=== PATIENT | male | born 1980 | race Caucasian/White ===

== ENCOUNTER 2016-05-14 21:16 | Observation (INO) | payer OTHER ==
[~2016-05-14] VITALS: Ht 188 cm; Wt 90.3 kg
--- NOTE | ~2016-05-14 | HP ---
PATIENT'S NAME: KARINE LION [facility] AGE: 35 Y [address] ROOM: [place] [address] LOCATION: GPED ADMIT DATE: 05/15/2016 History & Physical DISCHARGE DATE: 05/15/2016 FAMILY PHYSICIAN: Naveen Gallagher MD ATTENDING PHYSICIAN: Naveen Gallagher DATE OF SERVICE: CHIEF COMPLAINT: Left knee injury. HISTORY: This 35-year-old male was admitted to [facility] last night for injury sustained to his left knee when a mother cow attacked him while he was helping with her calf. Cow weighed 1400 pounds and stumped on his left knee and thigh with her hooves and then stood over him, laid down on him, then got up. He had pain in his knee, but he is able to get up and hobble to his four- johnson and escaped. He had no loss of consciousness, but he had a mild concussion and a laceration above his eyebrow and some bruises. He complains of pain and swelling in his left mid thigh. Pain over the lateral aspect of his left knee. He denies numbness or tingling or loss of any motor function in his lower extremities. No bowel or bladder dysfunction. No neck or back pain. He drove the four-johnson last night to his parents, who called an ambulance, which brought him to [facility] Emergency Room. He was evaluated by Dr. Lux Tucker. CT scans were done of his cervical, thoracic, and lumbar spine, and pelvis and chest. There were no fractures or pneumothoraces. No pleural effusions or pulmonary contusions. No pathology in the abdomen. He was admitted to the hospital for observation. ALLERGIES: NONE. MEDICATIONS: 1. Tegretol XR 400 mg at bedtime. 2. 370. 3. Sublimaze for pain. SURGICAL HISTORY: Negative. MEDICAL HISTORY: Seizure disorder, otherwise negative. SOCIAL HISTORY: PATIENT'S NAME: KARINE LION [facility] AGE: 35 Y [address] ROOM: [place] [address] LOCATION: GPED ADMIT DATE: 05/15/2016 History & Physical DISCHARGE DATE: 05/15/2016 FAMILY PHYSICIAN: Naveen Gallagher MD ATTENDING PHYSICIAN: Naveen Gallagher Nonsmoker. No alcohol use. FAMILY HISTORY: Positive for heart trouble. REVIEW OF SYSTEMS: No chest pain, shortness of breath, or trouble breathing. No nausea, vomiting. No dysuria or hematuria. No chest pain. No malaise. No fevers or chills. No weight changes. No psych troubles. No auditory or visual hallucinations. PHYSICAL EXAMINATION: GENERAL: He is awake, alert, and oriented x3. Mood and affect appropriate. VITAL SIGNS: Blood pressure 125/75, pulse 79, respirations 16, temp 96.8. HEENT: He has a sutured laceration over his right eyebrow, which is clean. Vision is good. Extraocular movements intact. NEUROLOGIC: Cranial nerves 2 through 12 intact. NECK: Supple, nontender. SPINE: Nontender. HEART: Regular rhythm. CHEST: Clear to auscultation. ABDOMEN: Soft, nontender. Normoactive bowel sounds. PELVIS: No pain with compression. EXTREMITIES: Left knee has a trace of swelling and lateral tenderness. There is no effusion or warmth. Range is 0 to 150 degrees. Drawer and Eliza's negative. No collateral laxity. Ambulates with a mild limp. The thigh has some swelling and tenderness laterally and anteriorly. No bruising. Skin is intact. Hip moves well without pain. RADIOLOGY DATA: X-rays of his left knee are negative for fractures. CT of his pelvis and hips is negative. CT of chest is negative. CT of cervical, thoracic, and lumbar spine is negative. IMPRESSION: 1. Contusion, strain, left knee. No fracture. No effusion. 2. Right eyebrow laceration. 3. First-degree concussion. 4. Facial contusion. PLAN: Physical therapy. Ice to knee p.r.n. pain. Crutches. Weight bear as tolerated. Discharged home. Follow up in 1 week. Work as tolerated. No need for a knee immobilizer. Discussed treatment plan with the patient and his . They understand and desire to proceed as planned. PATIENT'S NAME: KARINE LION [facility] AGE: 35 Y [address] ROOM: [place] [address] LOCATION: GPED ADMIT DATE: 05/15/2016 History & Physical DISCHARGE DATE: 05/15/2016 FAMILY PHYSICIAN: Naveen Gallagher MD ATTENDING PHYSICIAN: Naveen Gallagher GALLITO E MD ROHIT STOLL/olgal /[id number] D: [id number] T: [id number] HISTORY & PHYSICAL
--- NOTE | ~2016-05-14 | HP ---
PATIENT'S NAME: KARINE LION [facility] AGE: 35 Y [address] ROOM: [place] [address] LOCATION: GPED ADMIT DATE: 05/15/2016 History & Physical DISCHARGE DATE: 05/15/2016 FAMILY PHYSICIAN: Naveen Gallagher MD ATTENDING PHYSICIAN: Naveen Gallagher DATE OF SERVICE: CHIEF COMPLAINT: Trauma. 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 He states he was taking to the ground and also pushed up against the alleyway and stepped on. The patient presented to the emergency department, was noted to have a laceration above his eye, and had a CT of his head, C-spine, thoracic spine, and lumbar spine along with chest and abdomen performed, which were unremarkable except for degenerative changes in the lumbar spine. The patient was still having difficulty with pain control and needed to be admitted for pain control. PAST MEDICAL HISTORY: Seizure disorder. PAST SURGICAL HISTORY: 1. Tonsillectomy. 2. Knee surgery. ALLERGIES: NO KNOWN MEDICAL ALLERGIES. CURRENT MEDICATIONS: Please see list. FAMILY HISTORY: Noncontributory. SOCIAL HISTORY: The patient denies any tobacco use. REVIEW OF SYSTEMS: A complete review of systems obtained and pertinent positives and negatives as mentioned in the HPI, which also includes the patient denies any chest pain, shortness of breath, abdominal pain, nausea, vomiting, or any loss of PATIENT'S NAME: KARINE LION [facility] AGE: 35 Y [address] ROOM: [place] [address] LOCATION: GPED ADMIT DATE: 05/15/2016 History & Physical DISCHARGE DATE: 05/15/2016 FAMILY PHYSICIAN: Naveen Gallagher MD ATTENDING PHYSICIAN: Naveen Gallagher consciousness. OBJECTIVE: VITAL SIGNS: Stable. GENERAL: The patient is alert and oriented, in mild distress due to his pain. HEENT: Head: Normocephalic with laceration noted above eye, that is sutured and abrasions on his face and forehead. No crepitus to palpation of the facial bones. Eyes: Conjunctivae clear. No scleral icterus. EOMI. PERRLA. NECK: No pain to palpation of the C-spine. HEART: Regular rate and rhythm. No rubs, murmurs, or gallops. LUNGS: Clear to auscultation bilaterally. ABDOMEN: Bowel sounds present. Nontender. EXTREMITIES: No cyanosis, clubbing, or edema. VASCULAR: Pulses +2 and equal bilaterally. SKIN: Abrasions and laceration 2 cm noted above right eye with suture along with some bruises. NEUROLOGIC: Cranial nerves 2 through 12 grossly intact. Sensation intact in extremities. MUSCULOSKELETAL: Pain with motion of left knee with flexion or extension. No effusion noted. LABORATORY AND RADIOLOGY DATA: CT of the head, C-spine, thoracic spine, lumbar spine, chest, and abdomen were negative. ASSESSMENT: 1. Pain due to trauma. 2. Laceration 2 cm above the right eye. 3. Left knee pain. PLAN: At this time, we will work to get the patient's pain under control with IV morphine. We will monitor his O2 saturation and have Orthopedics evaluate his left knee that was stepped on by the cow. We will do Zofran for nausea and address any issues or concerns and continue on his medication for his seizure disorder. MD SUDHAKAR DE LEON/nadira /[id number] D: [id number] T: [id number] HISTORY & PHYSICAL
--- NOTE | ~2016-05-14 | ER ---
PATIENT'S NAME: KARINE LION [facility] AGE: 35 Y [address] ROOM: [place] [address] LOCATION: GPED ADMIT DATE: 05/15/2016 ER/Outpatient Report DISCHARGE DATE: FAMILY PHYSICIAN: Naveen Gallagher MD ATTENDING PHYSICIAN: Naveen Gallagher Admission date and time are documented on the medical record. I saw the patient at 2130 hours. HISTORY OF PRESENT ILLNESS: The patient was taken by 2 cows, direct blow, and kind of a crush injury. Did not lose consciousness. Brought to the emergency room by paramedics via ambulance for evaluation. The patient has left knee pain, chest pain, abdominal pain, and head and neck pain. He has about a 2-cm laceration in the right eyebrow. He has no recent colds, coughs, flus, fever, chills, or sweats. No real shortness of breath. He is breathing okay. No nausea or vomiting. No incontinence of stool or urine. Other than the left knee, no other joint or muscle swelling, redness, or pain. He has some bruising, but no major laceration of his extremities, trunk, back, or abdomen. History of seizure disorder; otherwise, no neuro changes, no psych issues, and no endocrine problems. HOME MEDICATIONS: See attached medication list. ALLERGIES: NONE. SOCIAL HISTORY: Nonsmoker, nondrinker. SIGNIFICANT PAST MEDICAL HISTORY: Seizure disorder. OPERATIONS: None. REVIEW OF SYSTEMS: All systems reviewed by me are negative with the exception of those discussed in the history of present illness. PHYSICAL EXAMINATION: VITAL SIGNS: Temperature 98.6, tympanic, pulse 120, regular, respirations 16, blood pressure is 133/72, and O2 sat on room air is 93%. HEAD: Normocephalic. The patient has some bruising of his face. He has a 2- PATIENT'S NAME: KARINE LION [facility] AGE: 35 Y [address] ROOM: [place] [address] LOCATION: GPED ADMIT DATE: 05/15/2016 ER/Outpatient Report DISCHARGE DATE: FAMILY PHYSICIAN: Naveen Gallagher MD ATTENDING PHYSICIAN: Goldfish,Naveen L cm horizontal laceration of his right eyebrow. This was cleansed with normal saline. A 1% Xylocaine was used for local infiltration of anesthesia. Wound was closed in simple fashion with 5-0 Ethilon suture. The patient tolerated the procedure well. Wound was cleansed and dressed. EYES: Extraocular muscles intact. PERRL. EARS: Clear TMs bilaterally. NOSE: Clear. He had some epistaxis, but nothing current. No deformity. THROAT: Clear. Teeth, jaw intact. NECK: The patient is in rigid cervical collar. SPINE: Negative. BACK: Intact. CHEST: Some mild tenderness across his anterior chest to palpation. No deformity. LUNGS: Clear. Good airflow. No rales, rhonchi, or wheezes. HEART: Regular. Pulses are palpable. ABDOMEN: Soft, nondistended, nontender. Good bowel tones. No organomegaly or abnormal mass palpable. No CVA tenderness. PELVIS: Stable, nontender. EXTREMITIES: The patient has some tenderness in his left knee. No swelling. No open wounds. No lacerations. NEURO: Cranial nerves intact. No lateralizing sign. The patient is awake, alert, and cooperative. Motor and sensory intact. SKIN: Clear. No skin eruptions or rash other than some bruising of the face and laceration of the right eyebrow. LABORATORY DATA: CMS was normal except for a low CO2 content of 16, elevated anion gap of 23.1, low calcium of 8.2, elevated creatinine 1.5, and low GFR of 53. White count 6600, 61 segs, 33 lymphs, 4 monos, 1 eo, 1 baso, hemoglobin is 14.9 with hematocrit 44.5, and platelet count is 224,000. Lactate was 11. CT scan of the head showed no intracranial bleed, midline shift, mass effect, or skull fracture. CT scan of the cervical spine showed no acute fracture or subluxation. CT scan of the thoracic spine showed no acute fracture or subluxation. CT scan of the lumbosacral spine showed degenerative changes, no acute fracture or subluxation. CT scan of the chest showed no pneumothorax, rib fracture, mediastinal changes. No pleural effusion, pulmonary contusion, or pericardial effusion. CT scan of the abdomen and pelvis showed no free air or free fluid. No solid organ abnormalities. There was a question of the right testis in the right inguinal canal. All CT scans read by Radiology, see dictated transcribed reports. EMERGENCY DEPARTMENT COURSE: I did start the patient on IV normal saline, fluids, gave him 1 L here in the emergency room. I gave him fentanyl for pain and put him in a left knee immobilizer. PATIENT'S NAME: KARINE LION [facility] AGE: 35 Y [address] ROOM: [place] [address] LOCATION: GPED ADMIT DATE: 05/15/2016 ER/Outpatient Report DISCHARGE DATE: FAMILY PHYSICIAN: Naveen Gallagher MD ATTENDING PHYSICIAN: Naveen Gallagher IMPRESSION: Trauma, secondary to being attacked by a cow. The patient has a 2-cm right eyebrow laceration with simple closure, mild 1st degree concussion, facial contusions, bloody nose, and a bruised left knee. No other abnormalities were found on physical exam or CT study results. The patient did receive CT scan of the head, cervical, thoracic, and lumbosacral spine as well as the chest, abdomen, and pelvis with intravenous contrast. PLAN: I did discuss the patient with Dr. Cook for Dr. Gallagher. The patient will be admitted for outpatient observation. Further evaluation and treatment as needed. I did place the patient's left knee in an immobilizer. Discussion ensued with the patient and his concerning my findings and recommendations, they understand. MD CAROL ANN ALTMAN/modl /[id number] d: 05/15/16209 t: 05/15/16 034, OUTPATIENT REPORT
[2016-05-14 21:51] LABS: BASOPHIL % 0.5 %; EOSINOPHIL # 0.1 K/uL (0.0-0.5); EOSINOPHIL % 0.9 %; HEMATOCRIT 44.5 % (37.0-53.0); HEMOGLOBIN 14.9 g/dL (12.0-17.0); IMMATURE GRANULOCYTE % 0.6 %; LYMPHOCYTE # 2.2 K/uL (0.8-4.0); MCH 29.7 pg (27.0-34.0); MCHC 33.5 gm/dL (32.0-36.5); MCV 88.6 fl (83.0-98.0); MONOCYTE # 0.3 K/uL (0.0-1.0); MONOCYTE % 3.8 %; MPV 8.8 fl (9.4-12.4); NEUTROPHIL # (ANC) 4.1 K/uL (1.4-9.0); NEUTROPHIL % 61.2 %; NRBC % 0 /100WBC (0-0.00); PLATELET COUNT 224 K/uL (150-450); RBC 5.02 M/uL (4.00-6.00); RDW-CV 12.5 % (11.9-14.6); WBC 6.6 K/uL (4.0-11.0)
[2016-05-14 22:10] LABS: ALBUMIN 3.6 gm/dL (3.5-5.0); ANION GAP 23.1 (10.0-19.0); CALCIUM 8.2 mg/dL (8.5-10.5); CREATININE 1.5 mg/dL (0.6-1.3); POTASSIUM 5.1 mMol/L (3.7-5.1); TOTAL BILIRUBIN 0.1 mg/dL (0.0-1.5); TOTAL PROTEIN 7.1 g/dL (6.0-8.4)
[2016-05-15] MEDS ORDERED: TEGRETOL XR400 MG PO (03:06)
[2016-05-15] MEDS ORDERED: ALLEGRA-D 12 HR1 TAB PO (03:06)
--- NOTE | 2016-05-15 04:02 | NUR ---
Significant Event: THIS GENTLEMAN WAS ADMITTED THIS AM AFTER BEING STOMPED AND CHARGED BY COWS. PRESENTS WITH C/O LT KNEE PAIN. SUTURES TO RT EYEBROW AND BLACKENED RT EYE ORBIT. BRUISES TO LT SIDE FOREHEAD AND LATERAL UPPER CHEEK. MINIMAL EDEMA TO LT KNEE WITH SLIGHT RED ABRASION NOTED. PEDAL AND DORSAL PULSES GOOD. MOVES TOES WELL. AMBULATES ON LEG. DEEP ABRASION/AVULSION TO RT HAND. WOUNDS CLEANSED WITH SOAP AND H2O. SALINE LOCK INTACT LT HAND. 2 NORCO TABS GIVEN @ 0320 FOR PAIN RATED @ #10. TOLERATED JELLO/CRACKERS AND WATER WITHOUT EMESIS. Follow up: KNEE IMMOBILIZER WHEN UP. MONITOR PAIN LEVEL
[2016-05-15] MEDS ORDERED: NORCO 5-325 TA1 EACH PO (14:51)
--- NOTE | 2016-05-15 19:15 | NUR ---
D: PT DISMISSED TO HOME WITH . PT IS ABLE TO AMBULATE WITH CRUCTCHES. INSTRUCTION GIVEN BY P.T. PT ABLE TO SLOWLY MOVE LEG ON HIS OWN BUT DUE TO A LARGE BRUISE TO LEFT OUTER THIGH, HE EXPERIENCES DISCOMFORT WITH MOVEMENT. HE WAS ABLE TO SHOWER WITH 'S ASSISTANCE. NORCO GIVEN FOR PAIN AND SCRIPT SENT TO PHARMACY BY DR. MORRIS FROM THE CLINIC.
== END 2016-05-15 16:00 | disposition disaster alternative care site (69) ==
LOC: GACC 21:16 → GPED 05-15 01:39
PROVIDERS: Emergency Medicine; ADMIT Family Medicine
DX: S80.02XA Contusion of left knee, initial encounter (principal); S01.111A Laceration without foreign body of right eyelid and periocular area, initial encounter; S00.83XA Contusion of other part of head, initial encounter; S06.0X0A Concussion without loss of consciousness, initial encounter; W55.29XA Other contact with cow, initial encounter; Z79.899 Other long term (current) drug therapy
CPT/HCPCS: G0378; J3010; J7030; Q9967

== ENCOUNTER → 2016-05-14 | Outpatient (CLI) | payer OTHER ==
[~2016-05-14] MED LIST: ALLEGRA-D 12 HR1 TAB PO; NORCO 5-325 TA1 EACH PO; TEGRETOL XR400 MG PO
== END | disposition disaster alternative care site (69) ==
LOC: GAMB 20:45
DX: M25.561 Pain in right knee (principal); S89.92XA Unspecified injury of left lower leg, initial encounter; X58.XXXA Exposure to other specified factors, initial encounter